=== PATIENT | female | born 1930 | race Caucasian/White ===

== ENCOUNTER → 2018-01-13 | Outpatient (CLI) | payer OTHER, MEDICAID ==
[2015-08-27 12:45] VITALS: BP 126/83
[~2018-01-13] MED LIST: AMLO10TA6 PO; ASPI-630 PO; CARV25TA2 PO; CHOL10003 PO; FLUO5DRO5 EACHEYE; FLUT1DIS IH; LEVO75TA5 PO; MELA3TAB2 PO; OMEP40CA5 PO; PRAV40TA2 PO; PRED5DRO16 EACHEYE; SODI15DR5 OP; VITA400C36 PO; VITA80003 PO
--- NOTE | 2018-01-13 16:35 | RAD ---
AP view of the pelvis and two-view study of the left hip Clinical indications: Follow-up of fracture. COMPARISON: None available. FINDINGS: There is an intertrochanteric fracture of the proximal left femur which has been reduced with a long intramedullary eunice and 2 proximal interlocking screws. Radiolucent fracture line is still evident and therefore the fracture is not yet completely healed. However, there is healing callus formation and cortical thickening around the fracture indicative of healing. Most of the fracture appears healed. No osteolytic process is seen. IMPRESSION: Healing intertrochanteric fracture of the proximal left femur. Electronically signed by: Brooks Monroe MD (01/13/2018 4:32 PM) [facility]
== END | disposition home or self-care (01) ==
LOC: RAD 12:51
PROVIDERS: ATTEND Orthopaedic Surgery Sports Medicine
DX: S72.142D Displaced intertrochanteric fracture of left femur, subsequent encounter for closed fracture with routine healing (principal); X58.XXXD Exposure to other specified factors, subsequent encounter
CPT/HCPCS: 73502

== ENCOUNTER → 2018-02-28 | Outpatient (CLI) | payer OTHER, MEDICAID ==
[2015-08-27 12:45] VITALS: BP 126/83
--- NOTE | 2018-02-28 15:40 | RAD ---
EXAM: Renal sonogram. HISTORY: Abnormal renal function laboratory values. TECHNIQUE: Sonographic imaging of the kidneys and bladder was performed. COMPARISON: None. FINDINGS: The right kidney measures 9.1 cm [id number]. Left kidney measures 8.6 cm [id number]. There are bilateral renal cysts, measuring 4.4 cm and 1.0 cm on the right and 1.7 cm and 1.0 cm on the left. There is also a 1.4 cm cyst with thin internal septation or 2 adjacent cysts within the left kidney. There is no hydronephrosis. The urinary bladder is unremarkable. IMPRESSION: 1. Multiple bilateral renal cysts. The largest cyst measures 4.4 cm of the right. There is a cyst with thin internal septation or 2 adjacent cysts within the left kidney measuring 1.4 cm. No solid renal lesion is seen. 2. Slight decreased left renal size. This is due to measurement technique or mild atrophy. Electronically signed by: Raegan Mane MD (02/28/2018 3:36 PM) [id number]
== END | disposition home or self-care (01) ==
LOC: US 10:50
PROVIDERS: ATTEND Nurse Practitioner Family
DX: N28.1 Cyst of kidney, acquired (principal); R94.4 Abnormal results of kidney function studies
CPT/HCPCS: 76770

== ENCOUNTER → 2019-03-03 | Outpatient (CLI) | payer OTHER, MEDICAID ==
[2015-08-27 12:45] VITALS: BP 126/83
[~2019-03-03] MED LIST changes: -AMLO10TA6 PO; +AMLO10TA8 PO; -MELA3TAB2 PO; +MELA3TAB56 PO; +OMEP40CA45 PO; -OMEP40CA5 PO; +VITA-8 PO; -VITA400C36 PO
--- NOTE | 2019-03-03 16:34 | RAD ---
MR#: [id number] Date of Study: 03/03/2019 Ordering Physician: ANGEL JULIEN, Referring Physician: Huma LENTZ: Eveline Cruz RDMS RVT APPROVED REPORT Patient Location: OUT-PATIENT Laterality:Bilateral Indications CAD. H/O RT ENDARTECTOMY Grayscale images of the bilateral common carotid, internal and external carotid vessels demonstrates moderate diffuse plaque. Spectral waveforms and velocities of the bilateral internal carotid arteries are grossly within normal limits. Overall 0 to less than 50% stenosis based on velocity criteria. Bi lateral vertebral velocities are diminished but present. No significant external carotid disease. Nor mal ICA to CCA ratios bilaterally. Doppler Spectral Velocity Analysis Right Left pCCA 45/7 cm/spCCA 56/15 cm/s mCCA 46/7 cm/smCCA 63/10 cm/s dCCA 43/10 cm/sdCCA 56/9 cm/s ECA 60/ cm/sECA 79/ cm/s pICA 43/11 cm/spICA 111/11 cm/s Adal 42/13 cm/smICA 56/11 cm/s dICA 42/12 cm/sdICA 45/10 cm/s Vert. 28/ cm/sVert. 31/ cm/s ICA/CCA 0.93ICA/CCA 1.98 Critical Notification Critical Value: No <Conclusion> No significant carotid occlusive disease bilaterally. Signed by : Harsha Interiano, Electronically Approved : 03/03/2019 16:33:24
== END | disposition home or self-care (01) ==
LOC: US 10:05
PROVIDERS: ATTEND Internal Medicine Cardiovascular Disease
DX: I65.23 Occlusion and stenosis of bilateral carotid arteries (principal); I25.10 Atherosclerotic heart disease of native coronary artery without angina pectoris
CPT/HCPCS: 93880